=== PATIENT | female | born 1965 | race Caucasian/White ===

== ENCOUNTER 2017-08-14 07:48 | Emergency (ER) | payer BC ==
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
[2017-08-14 08:15] VITALS: BP 139/68
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
== END 2017-08-14 09:24 | disposition left against medical advice (07) ==
LOC: UCEAST 07:48
DX: M54.6 Pain in thoracic spine (principal); R10.13 Epigastric pain; R06.00 Dyspnea, unspecified; R42 Dizziness and giddiness; R11.0 Nausea; M25.531 Pain in right wrist; M25.511 Pain in right shoulder; Z87.891 Personal history of nicotine dependence
CPT/HCPCS: 93005; 99213; G0463

== ENCOUNTER 2017-08-14 09:44 | Emergency (ER) | payer BC ==
[2017-08-14] MEDS ORDERED: Ibuprofen TAB* 800 MG PO ONE (10:26)
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
--- NOTE | 2017-08-14 11:19 | RAD ---
Indication: Left rib pain. 4 views of left ribs demonstrates no fracture. No pneumothorax is noted. Heart is of normal size and configuration. IMPRESSION: No fracture of left ribs is noted.
--- NOTE | 2017-08-14 11:21 | RAD ---
Indication: Right wrist injury. 3 views of the wrist demonstrates no fracture. No other bone or joint abnormality is identified. IMPRESSION: NO FRACTURE OF THE WRIST IS NOTED.
--- NOTE | 2017-08-14 11:21 | RAD ---
Indication: Fall, back pain. 2 views of the thoracic spine demonstrates normal height and alignment although T1 is not well visualized. Degenerative disc disease at multiple levels are noted. IMPRESSION: No definite fracture of the thoracic spine although T1 level is limited in evaluation. Multiple levels of degenerative disc disease is noted.
--- NOTE | 2017-08-14 11:21 | RAD ---
Indication: Right elbow injury. 4 views of the right elbow demonstrates no fracture. No other bone or joint abnormality is noted. There is a anterior fat pad sign. IMPRESSION: No fracture of the right elbow is noted.
[2017-08-14 12:04] VITALS: BP 137/94
== END 2017-08-14 12:04 | disposition home or self-care (01) ==
LOC: ED 09:44
DX: S20.229A Contusion of unspecified back wall of thorax, initial encounter (principal); S20.219A Contusion of unspecified front wall of thorax, initial encounter; S63.501A Unspecified sprain of right wrist, initial encounter; W01.0XXA Fall on same level from slipping, tripping and stumbling without subsequent striking against object, initial encounter; Y92.9 Unspecified place or not applicable; Z87.891 Personal history of nicotine dependence
CPT/HCPCS: 72070; 99281; A9270-GY

== ENCOUNTER 2020-10-06 11:30 | Observation (INO) ==
[~2020-10-06 11:30] MED LIST: Buffered Lidocaine 1% SYRIN 1 ml INTRADERM ONE; Lactated Ringers 1000 ml BAG 1,000 ML IV SCH
[2020-10-06] MEDS ORDERED: ceFAZolin 2 GM PREMIX 2 GM/50 ML BAG ONE (11:53)
[2020-10-06] MEDS ORDERED: Ondansetron 4 mg VIAL 2 MG/ML 2 ml VIAL ONE (11:55)
[2020-10-06] MEDS ORDERED: Lidocaine 2% PF 5 ML VIAL ONE (11:55)
[2020-10-06] MEDS ORDERED: Propofol 10 MG/ML 20 ML BTL ONE (11:55)
[2020-10-06] MEDS ORDERED: Dexamethasone IV 4 MG/ML VIAL 1 ml VIAL ONE (11:55)
[2020-10-06] MEDS ORDERED: Ketamine HCL 50 mg/ml 10 ml VIAL (500 MG) ONE (11:57)
[2020-10-06] MEDS ORDERED: Lidocaine 1% MPF 5 ML VIAL ONE (12:36)
[2020-10-06] MEDS ORDERED: Bupivacaine 0.25% SDV 30 ML ONE (12:36)
[2020-10-06] MEDS ORDERED: Bupivacaine 0.5% SDV PF 30ML VIAL ONE (12:36)
[2020-10-06] MEDS ORDERED: fentaNYL 100 mcg/2 ml 50 MCG/ML VIAL ONE (12:45)
[2020-10-06] MEDS ORDERED: Midazolam 2 mg/2 ml VIAL 1 mg/ml 2 ml VIAL (2 mg) ONE ×2 (12:45→13:57)
[2020-10-06] MEDS ORDERED: Ropivacaine 5 MG/ML 20 ML VIAL 0.5% (100 MG) ONE (12:46)
[2020-10-06] MEDS ORDERED: Lidocaine 2% PF 10 ML AMP ONE (12:49)
[2020-10-06] MEDS ORDERED: Lactulose 30 ml UDC PO PRN (14:33)
[2020-10-06] MEDS ORDERED: Ondansetron 4 mg VIAL 2 MG/ML 2 ml VIAL IV PRN (14:33)
[2020-10-06] MEDS ORDERED: diPHENhydraMINE IV 50 MG/ML 1 ml VIAL (BENADRYL) IV PRN (14:33)
[2020-10-06] MEDS ORDERED: diPHENhydraMINE 25 mg TAB PO PRN (14:33)
[2020-10-06] MEDS ORDERED: Magnesium Hydroxide LIQ 30 ML UDC PO PRN (14:33)
[2020-10-06] MEDS ORDERED: Morphine 2 MG/ML SYRINGE IV PRN (14:33)
[2020-10-06] MEDS ORDERED: Ondansetron ODT 4 mg TAB 4 MG TAB PO PRN (14:33)
[2020-10-06] MEDS ORDERED: Lactated Ringers 1000 ml BAG 1,000 ML IV SCH (15:00)
[2020-10-06] MEDS ORDERED: oxyCODONE/Acetamin 5/325 mg TAB PO PRN (16:14)
[2020-10-06] MEDS ORDERED: oxyCODONE/Acetamin 5/325 mg TAB ONE (16:40)
[2020-10-06] MEDS: Magnesium Hydroxide LIQ 30 ML UDC PO SCH (20:23)
[2020-10-06] MEDS: ceFAZolin 1 GM ADVAN 1 GM in NS 0.9% 50 ML 50 ML IVPB SCH (22:48)
[2020-10-07 04:53] LABS: Hematocrit 37 % (35-47); Hemoglobin 12.3 g/dL (12.0-16.0); Mean Platelet Volume 7.8 fL (7.4-10.4); Platelet Count 272 10^3/uL (150-450)
[2020-10-07 05:11] LABS: Calcium 8.5 mg/dL (8.6-10.3); EGFR African American 101.8 (>60); EGFR Non-African American 84.1 (>60); Potassium 4.1 mmol/L (3.5-5.0)
[2020-10-07] MEDS: ceFAZolin 1 GM ADVAN 1 GM in NS 0.9% 50 ML 50 ML IVPB SCH ×2 (06:26→15:14)
[2020-10-07] MEDS: Magnesium Hydroxide LIQ 30 ML UDC PO SCH (07:57)
[2020-10-07] MEDS ORDERED: Vitamin THERAPEUTIC TAB PO SCH (09:00)
[2020-10-07 11:37] VITALS: BP 131/58
[2020-10-11] MEDS ORDERED: Estradiol PATCH 0.05 MG/DAY PATCH TRANSDERM SCH (09:00)
== END 2020-10-07 15:57 | disposition home or self-care (01) ==
LOC: SSU 11:30 → OR 11:30 → EDSTATUS 13:30
PROVIDERS: ADMIT Orthopaedic Surgery Adult Reconstructive Orthopaedic Surgery; ATTEND Orthopaedic Surgery Adult Reconstructive Orthopaedic Surgery

== ENCOUNTER 2023-10-03 05:42 | Inpatient (IN) ==
[2023-10-03] MEDS ORDERED: Tranexamic Acid 1 GM/100ML BAG 2,000 MG/200 ML BAG IV ONE (05:57)
[2023-10-03] MEDS ORDERED: ceFAZolin 2 GM in NS PREMIX 2 GM/100 ML BAG IVPB ONE (05:57)
[2023-10-03 06:13] LABS: Rapid COVID-19 Molecular Undetected (Undetected)
[2023-10-03] MEDS ORDERED: Propofol 0 MG/0 ML BTL ONE (07:09)
[2023-10-03] MEDS ORDERED: Rocuronium 50 mg VIAL 10 mg/ml 5 ml VIAL (50 mg) ONE (07:09)
[2023-10-03] MEDS ORDERED: Midazolam 2 mg/2 ml VIAL 1 mg/ml 2 ml VIAL (2 mg) ONE ×2 (07:09→07:10)
[2023-10-03] MEDS ORDERED: Propofol 10 MG/ML 20 ML BTL ONE ×2 (07:09→08:19)
[2023-10-03] MEDS ORDERED: Phenylephrine IV 10 MG/ML 1 ml VIAL ONE ×2 (07:09→08:36)
[2023-10-03] MEDS ORDERED: Lidocaine 2% PF 5 ML VIAL ONE (07:09)
[2023-10-03] MEDS ORDERED: fentaNYL 100 mcg/2 ml 50 MCG/ML VIAL ONE (07:09)
[2023-10-03] MEDS ORDERED: Bupivacaine-MPF SPINAL 7.5 MG/ML - 2ML AMP ONE ×2 (07:09→07:10)
[2023-10-03] MEDS ORDERED: ROPIVACAINE 5 MG/ML 30 ML BTL (0.5%) ONE ×2 (07:10→07:16)
[2023-10-03] MEDS ORDERED: Ondansetron 4 mg VIAL 2 MG/ML 2 ml VIAL ONE (07:48)
[2023-10-03] MEDS ORDERED: Dexamethasone IV 4 MG/ML VIAL 1 ml VIAL ONE (07:48)
[2023-10-03] MEDS ORDERED: Ondansetron ODT 4 mg TAB 4 MG TAB PO PRN (09:51)
[2023-10-03] MEDS ORDERED: Ondansetron 4 mg VIAL 2 MG/ML 2 ml VIAL IV PRN ×2 (09:51→10:54)
[2023-10-03] MEDS ORDERED: Morphine 2 MG/ML SYRINGE IV PRN (09:51)
[2023-10-03] MEDS ORDERED: Magnesium Hydroxide LIQ 30 ML UDC PO PRN (09:51)
[2023-10-03] MEDS ORDERED: Calcium Carb (TUMS) 500 mg CHEW TAB PO PRN (09:51)
[2023-10-03] MEDS ORDERED: Lactulose 30 ml UDC PO PRN (09:51)
[2023-10-03] MEDS ORDERED: Metoclopramide 5 MG/ML VIAL (10 mg) IV PRN (10:54)
[2023-10-03] MEDS ORDERED: fentaNYL 100 mcg/2 ml 50 MCG/ML VIAL IV PRN (10:54)
[2023-10-03] MEDS ORDERED: Naloxone 0.4 mg VIAL 0.4 mg/ml 1 ml VIAL IV PRN (10:54)
[2023-10-03] MEDS ORDERED: Acetaminophen IV 1 GM/100ML 1,000 MG/100 ML BAG IV ONE (10:55)
[2023-10-03] MEDS ORDERED: NS 0.45% 1000 ml BAG 1,000 ML IV SCH (11:00)
[2023-10-03] MEDS: Acetaminophen IV 1 GM/100ML 1,000 MG/100 ML BAG IV ONE (11:01)
[2023-10-03] MEDS: Scopolamine 1 mg/72hr PATCH TRANSDERM ONE (12:44)
[2023-10-03] MEDS: Buffered Lidocaine 1% SYRIN 1 ml INTRADERM ONE (12:44)
[2023-10-03] MEDS: Lactated Ringers 1000 ml BAG 1,000 ML IV SCH ×2 (13:02→13:41)
[2023-10-03] MEDS: ceFAZolin 2 GM in NS PREMIX 2 GM/100 ML BAG IVPB SCH (16:12)
[2023-10-03] MEDS: Magnesium Hydroxide LIQ 30 ML UDC PO SCH (21:28)
[2023-10-04 05:49] LABS: Hemoglobin 11.8 g/dL (11.5-14.3); Platelet Count 258 10^3/uL (150-450)
[2023-10-04 06:08] LABS: Calcium 8.6 mg/dL (8.6-10.3); Creatinine, Serum 0.72 mg/dL (0.51-0.95); Potassium 3.9 mmol/L (3.5-5.0); eGFR CKD-EPI 96.9 (>60)
[2023-10-04] MEDS: Vitamin THERAPEUTIC TAB PO SCH (07:24)
[2023-10-04 09:38] VITALS: BP 109/53
== END 2023-10-04 13:06 | disposition home or self-care (01) | DRG 302 ==
LOC: INTOOBSV 05:42 → AA 05:42 → SSU 12:14
PROVIDERS: ADMIT Orthopaedic Surgery Adult Reconstructive Orthopaedic Surgery; ATTEND Orthopaedic Surgery Adult Reconstructive Orthopaedic Surgery